=== PATIENT | male | born 1990 | race Caucasian/White ===

== ENCOUNTER 2018-10-30 14:25 | Day surgery (SDC) | payer OTHER ==
[~2018-10-30] VITALS: Ht 172.7 cm; Wt 96.9 kg
[~2018-10-30 14:25] MED LIST: ZOFRAN ODT4 MG PO
[2018-10-30 16:37] VITALS: BP 131/72; PULSE 97; TEMP 98.1
[2018-10-30 19:11] VITALS: BP 118/65; PULSE 91; TEMP 98.4
[2018-10-31 00:03] VITALS: BP 112/60; PULSE 85; TEMP 98.5
[2018-10-31 04:24] VITALS: BP 122/64; PULSE 85; TEMP 98.2
[2018-10-31 06:14] LABS: HEMATOCRIT 42.6 % (42.0-52.0); HEMOGLOBIN 14.8 g/dl (13.5-18.0); MEAN CELL VOLUME 84 fl (80.0-100.0); MEAN CORPUSCULAR HEMOGLOBIN 29 pg (27.0-31.0); MEAN CORPUSCULAR HGB CONC 35 g/dl (33.0-37.0); MEAN PLATELET VOLUME 10.3 fl (7.4-10.4); PLATELET COUNT 270 K/mm3 (130-400); RED BLOOD COUNT 5.07 M/mm3 (4.20-5.60); REDCELL DISTRIBUTION WIDTH-CV 12.2 % (11.5-14.5)
[2018-10-31 06:34] LABS: CALCIUM 9.2 mg/dL (8.4-10.2); CREATININE, serum 1.22 mg/dL (0.66-1.25); POTASSIUM 3.9 mmol/L (3.4-5.0)
[2018-10-31 07:44] LABS: BAND 6 % (0-10); EOSINOPHIL 2 % (0-4); LYMPHOCYTE 19 % (20.0-51.0); METAMYELOCYTE 1 % (0-0); NEUTROPHILS 66 % (42.0-75.2)
[2018-10-31 07:46] LABS: PLATELET ESTIMATE NORMAL (NORMAL)
[2018-10-31 09:03] VITALS: BP 119/70; PULSE 105; TEMP 97.5
[2018-10-31 11:36] VITALS: BP 120/65; PULSE 76; TEMP 98.6
== END 2018-10-31 13:52 | disposition home or self-care (01) ==
LOC: SDCO 14:25 → COL.RAD 14:25 → SURG 14:25 → EDSTATUS 16:23 → SURG 16:24 → SDCO 10-31 13:52
PROVIDERS: Surgery
DX: K35.80 Unspecified acute appendicitis (principal)
CPT/HCPCS: OP; G0378; G0379; J2270; J2543; J7120; Q9967

== ENCOUNTER 2018-11-21 08:32 | Day surgery (SDC) | payer OTHER ==
[~2018-11-21] VITALS: Ht 172.7 cm; Wt 99.6 kg
[2018-11-21 09:03] VITALS: BP 144/74; PULSE 73; TEMP 98.3
--- NOTE | 2018-11-21 09:13 | NUR ---
TO RM AT 0838- CALL LIGHT IN REACH. NO FAMILY HERE AT THIS TIME.
[2018-11-21 11:35] VITALS: BP 135/75; PULSE 86; TEMP 98
--- NOTE | 2018-11-21 11:35 | NUR ---
TO RM 2 PER CART FROM PACU. ALERT ORIENTED X3 AND TALKING WITH STAFF. DENIES PAIN OR DISCOMFORT. DENEIS N/V 3 SITES CLEAN DRY INTACT WITH [employer]RIG[employer]Z SET. EATING ICE CHIPS AND TOLERATED WELL.
[2018-11-21 11:50] VITALS: BP 141/77; PULSE 78
--- NOTE | 2018-11-21 11:50 | NUR ---
RECEIVED MUFFIN, APPLESAUCE AND WATER. SITTING UP AND WATCHING TV
[2018-11-21] MEDS ORDERED: NORCO 325 MG-51 TAB PO (11:52)
[2018-11-21 12:00] VITALS: BP 135/80; PULSE 85
--- NOTE | 2018-11-21 12:00 | NUR ---
ATE 100% AND TOLERATED WELL. RESTING AND WATCHING TV. DENIES PAIN OR DISCOMFORT DENIES NAUSEA OR VOMITING.
[2018-11-21 12:15] VITALS: BP 137/71; PULSE 80
--- NOTE | 2018-11-21 12:15 | NUR ---
NO CHANGES AND NO C/O PAIN.
--- NOTE | 2018-11-21 12:30 | NUR ---
GETTING UP TO BATHROOM, PATIENT GRIMACED. CONTINUES TO REFUSE PAIN MEDS. AMBULATED TO BATHROOM AND VOIDED. AMBULATED BACK TO BED AND TOLERATED WELL.
--- NOTE | 2018-11-21 12:40 | NUR ---
RECEIVED DISCHARGE INSTRUTIONS AND VERBALIZED UNDERSTANDING. DISCONTINUED IV AND INT- CATHETER INTACT
--- NOTE | 2018-11-21 12:50 | NUR ---
DISCHARGED PER WC BY NURSING STAFF TO PRIVATE CAR IN CARE OF PARENTS.
== END 2018-11-21 11:30 | disposition home or self-care (01) ==
LOC: SDCO 08:32
DX: K35.30 Acute appendicitis with localized peritonitis, without perforation or gangrene (principal); K38.8 Other specified diseases of appendix; F17.210 Nicotine dependence, cigarettes, uncomplicated
CPT/HCPCS: J0690; J1100; J1885; J2405; J2704; J3010; J7120